=== PATIENT | female | born 1945 | race Caucasian/White ===

== ENCOUNTER 2017-02-18 13:30 | Emergency (ER) | payer BC, MEDICARE ==
[~2017-02-18 13:30] MED LIST: AMLO10TA2 PO; CARV3.122 PO; CITA20TA5 PO; HYDR12.58 PO; PRAV20TA2 PO
[2017-02-18 13:44] VITALS: BP 138/64
[2017-02-18] MEDS ORDERED: DIPHTH,PERTUSS(ACELL),TET TOX 0.5 ML DISP.SYRIN. VAX IM ONE (14:30)
[2017-02-18] MEDS ORDERED: HYDROcodone/APAP 5/325MG 1 TAB TABLET PO ONE (14:30)
--- NOTE | 2017-02-18 14:35 | PHYS DOC ---
Past Medical History Past Medical History: COPD, Hypertension, Other Additional Past Medical Histor: stress incontinence, leg swelling Past Surgical History: Other Alcohol Use: None Drug Use: None Adult General Chief Complaint Chief Complaint: MECHANICAL FALL HPI HPI 71-year-old female presenting to the emergency department today after having a mechanical fall on Sunday evening and hitting her in. She denies loss of consciousness or neck pain. She also injured her right wrist and feels some mild shoulder pain with pain in her right ribs with inspiration. The patient is a mild/moderate sharp pain that is nonradiating and without alleviating factors. She is not on warfarin or Coumadin. She does take a daily baby aspirin. She denies any other blood thinners. Review of systems is negative for abdominal pain nausea vomiting fevers chills or any other injuries to her extremities. All other review of systems is negative unless otherwise noted in history of present illness. ED course: 71-year-old female presenting to the emergency department today after sustaining a fall. X-rays of the right wrist and shoulder obtained along with CT the head and neck. The patient's right hand had a small laceration that was far outside window of repair. Otherwise the remainder the secondary survey shows no acute injuries. xrays unremarkable for acute pathology. pt placed in wrist splint and shoulder sling to f/u with pcp in 3 days. face to face d/c instructions given along with return precautions. Review of Systems Review of Systems SEE ABOVE. Current Medications Current Medications Current Medications Medications (Trade) Dose Ordered Sig/Henny Start Time Stop Time Status Last Admin Dose Admin Acetaminophen/ Hydrocodone Bitart (Lortab 5/325) 2 tab 1X ONCE 02/18/17 14:30 02/18/17 14:31 DC 02/18/17 14:09 2 TAB Diphtheria/ Tetanus/Acell Pertussis (Boostrix) 0.5 ml ONCE ONCE 02/18/17 14:30 02/18/17 14:31 DC Allergies Allergies Allergies Coded Allergies Type Severity Reaction Last Updated Verified No Known Drug Allergies 07/27/14 No Physical Exam Physical Exam SEE ABOVE Constitutional: Well developed, well nourished, no acute distress, non-toxic appearance. [] HENT: Normocephalic, ecchymosis of the chin with small abrasion. No abrasions lacerations or ecchymosis of the remainder of the head. Bilateral external ears normal, oropharynx moist, no oral exudates, nose normal. [] Eyes: PERRLA, EOMI, conjunctiva normal, no discharge. [] Neck: Normal range of motion, no tenderness, supple, no stridor. [] No step- offs lacerations or ecchymosis or abrasions of the c/t/and l spine. Nontender midline. Cardiovascular:Heart rate regular rhythm, no murmur [] Lungs & Thorax: Bilateral breath sounds clear to auscultation []. No crepitus to palpation of the chest wall. No ecchymosis of the chest wall. Tender to palpation at the 10th rib on the right. Abdomen: Soft nontender abdomen without rebound tenderness or guarding present. Negative McBurneys point. Negative Jules sign. No ecchymosis present. Skin: Warm, dry, no erythema, no rash. [] Back: No tenderness, no CVA tenderness. [] Extremities: Patient has swelling of the right wrist with pain of the wrist and hand. Nontender scaphoid. Neurovascularly intact otherwise of the right hand. Nontender with normal range of motion of the elbow on the right. Pain with passive range of motion of the right shoulder without any obvious deformities. Nontender clavicle. The left upper extremity has a small bruise on left hand that is nontender to palpation. Normal range of motion and nontender palpation of the remainder the left upper extremity. The lower extremities are nontender with normal range of motion. Neurovascularly intact. Neurologic: Alert and oriented X 3, normal motor function, normal sensory function, no focal deficits noted. [] Psychologic: Affect normal, judgement normal, mood normal. [] Current Patient Data Vital Signs Vital Signs Date Time Temp Pulse Resp B/P (MAP) Pulse Ox O2 Delivery O2 Flow Rate FiO2 02/18/17 14:09 16 02/18/17 13:44 98.4 72 138/64 (88) 97 Room Air 98.4 EKG EKG [] Radiology/Procedures Radiology/Procedures [] Course & Med Decision Making Course & Med Decision Making Pertinent Labs and Imaging studies reviewed. (See chart for details) [] Dragon Disclaimer Dragon Disclaimer This electronic medical record was generated, in whole or in part, using a voice recognition dictation system. Departure Departure Impression: Primary Impression: Fall Additional Impressions: Head injury Wrist pain Disposition: HOME, SELF-CARE Condition: STABLE Referrals: LAURY MORA MD (PCP) Patient Instructions: Fall Prevention and Home Safety, Head Injury, Adult, Wrist Pain Additional Instructions: Thank you for allowing us to participate in your care today. Followup with your primary care physician in 3 days if your symptoms do not improve. Call your Primary Doctor tomorrow and inform them of your visit today. If you do not have a primary care provider you can ask for a list of our primary care providers. Return to the emergency department you have any new or concerning findings. This should be evaluated by the primary care physician and any necessary consulting services for continued management within a few days after discharge. Return to emergency room if you have any new or concerning symptoms including but not limited to fever, chills, nausea, vomiting, intractable pain, any new rashes, chest pain, shortness of air, uncontrolled bleeding, difficulty breathing, and/or vision loss. You may have been prescribed medication that can change in your level of thinking and ability to operate machinery. These medications include hydrocodone and Ativan. Also, Benadryl has been known to do this as well. Be sure to check with your pharmacist and ask if the medications you've prescribed can affect your level of consciousness. I recommend not operating heavy machinery or driving while on medication such as these. Scripts Hydrocodone Bit/Acetaminophen (HYDROCODONE-APAP 5-325 ) 1 Each Tablet 1 TAB PO PRN Q6HRS Y for PAIN, #15 TAB 0 Refills Be careful as this medication may cause you to be drowsy or tired. Do not drive on this medication. Prov: ELISA MATTHEWS MD 02/18/17 Problem Qualifiers ELISA MATTHEWS MD Feb 18, 2017 14:35
--- NOTE | 2017-02-18 14:59 | RAD ---
CT HEAD AND CERVICAL SPINE WITHOUT CONTRAST History: Fall 2 days ago, head injury Comparison: None. Procedure: Axial images are obtained of the head from the skull base through the vertex without IV contrast. Noncontrast helical CT of the cervical spine was performed. Axial, sagittal, and coronal reconstructions were obtained. Head Findings: Mild periventricular hypoattenuation is nonspecific but most likely related to chronic small vessel ischemic disease. Meyers-white matter differentiation is preserved. The ventricles and sulci are normal for the patient's age.. No mass-effect, midline shift, hemorrhage or obvious acute infarction is identified. Basilar cisterns are patent. Bone windows demonstrate no acute calvarial abnormality. Ossific density in the right frontotemporal calvarium likely related to osteoma. The visualized paranasal sinuses appear clear. Mastoid air cells are well aerated. Cervical Spine Findings: Slight straightening of the normal cervical lordosis. Trace retrolisthesis of C5 on C6. The vertebral body heights are maintained. There is no evidence of acute fracture or acute malalignment. Moderate multilevel degenerative changes of the visualized spine with multilevel moderate to severe neural foraminal narrowing and at least mild spinal canal stenosis. No prevertebral soft tissue swelling is identified. Visualized soft tissues of the neck demonstrate no significant abnormalities. The visualized lung apices are clear. IMPRESSION: 1. No acute intracranial abnormality. 2. No acute fracture of the cervical spine. 3. Mild periventricular hypoattenuation is nonspecific but most likely related to chronic small vessel ischemic disease. 4. Moderate multilevel degenerative changes of the visualized spine with multilevel moderate to severe neural foraminal narrowing and at least mild spinal canal stenosis. PQRS Compliance Statement: One or more of the following individualized dose reduction techniques were utilized for this examination: 1. Automated exposure control 2. Adjustment of the mA and/or kV according to patient size 3. Use of iterative reconstruction technique
[2017-02-18] MEDS ORDERED: HYDR-2758 PO (15:36)
--- NOTE | 2017-02-18 15:50 | RAD ---
HAND RIGHT 3V Clinical Indication: Fall, hand pain Comparison: None. Findings: No acute fracture or malalignment. Multifocal arthrosis, worst at the first carpometacarpal joint, severe. Hitchhiker thumb deformity. Triangular fibrocartilage complex calcification. Bony mineralization is normal for the patient's age. No radiopaque foreign body. IMPRESSION: 1. No acute fracture or malalignment. 2. Multifocal arthrosis, worst at the first carpometacarpal joint, severe. Hitchhiker thumb deformity which can be seen with rheumatoid arthritis. Triangular fibrocartilage complex calcification which can be seen with CPPD. Constellation of findings is not specific for one entity.
--- NOTE | 2017-02-18 15:51 | RAD ---
SHOULDER 2+V RIGHT Clinical Indication: right wrist pain Comparison: None. Findings: No acute fracture or malalignment. Remote fracture of the distal third of the clavicle. Moderate glenohumeral joint arthrosis. Bony mineralization is normal for the patient's age. No significant soft tissue abnormality. No radiopaque foreign body. IMPRESSION: No acute fracture or malalignment.
--- NOTE | 2017-02-18 15:52 | RAD ---
WRIST 3V RIGHT Clinical Indication: Fall, right wrist pain Comparison: None. Findings: No acute fracture or malalignment. Multifocal arthrosis, worst at the first carpometacarpal joint, severe. Hitchhiker thumb deformity. Triangular fibrocartilage complex calcification. Bony mineralization is normal for the patient's age. No radiopaque foreign body. IMPRESSION: 1. No acute fracture or malalignment. 2. Multifocal arthrosis, worst at the first carpometacarpal joint, severe. Hitchhiker thumb deformity which can be seen with rheumatoid arthritis. Triangular fibrocartilage complex calcification which can be seen with CPPD. Constellation of findings is not specific for one entity.
--- NOTE | 2017-02-18 15:55 | RAD ---
RIBS RIGHT AND PA CHEST Clinical Indication: Fall, pain Comparison: Chest radiograph dated 04/04/2010 Findings: Normal lung volume. Remote granulomatous disease. Bibasilar subsegmental atelectasis. No focal consolidation. Normal pulmonary vasculature. No pleural effusion or pneumothorax. The cardiomediastinal silhouette is normal. Atherosclerotic thoracic aorta. No acute osseous abnormality. No displaced rib fracture. IMPRESSION: 1. Bibasilar subsegmental atelectasis. No focal consolidation. 2. No displaced rib fracture.
== END 2017-02-18 16:22 | disposition home or self-care (01) ==
LOC: ER 13:30
DX: S09.90XA Unspecified injury of head, initial encounter (principal); S69.91XA Unspecified injury of right wrist, hand and finger(s), initial encounter; M25.511 Pain in right shoulder; J44.9 Chronic obstructive pulmonary disease, unspecified; I10 Essential (primary) hypertension; M48.02 Spinal stenosis, cervical region
CPT/HCPCS: 29125; 70450; 71101; 72125; 73030; 73110; 73130; 99284-25

== ENCOUNTER → 2018-05-15 | Outpatient (CLI) | payer BC ==
[~2018-05-15] MED LIST changes: -AMLO10TA2 PO; +AMLO10TA6 PO; +CARV3.1210 PO; -CARV3.122 PO; -CITA20TA5 PO; +CITA20TA6 PO; +HYDR-2761 PO
--- NOTE | 2018-05-15 15:24 | CARD ---
MR#: [id number] Date of Study: 05/15/2018 Ordering Physician: JOSE DICKERSON, Referring Physician: JOSE DICKERSON, Tech: Lexy Keating RDCS APPROVED REPORT EXAM: Two-dimensional and M-mode echocardiogram with Doppler and color Doppler. Other Information Quality : Good INDICATION Peripheral Edema 2D DIMENSIONS RVDd2.3 (2.9-3.5cm)Left Atrium(2D)3.6 (1.6-4.0cm) IVSd1.1 (0.7-1.1cm)Aortic Root(2D)2.9 (2.0-3.7cm) LVDd5.3 (3.9-5.9cm)LVOT Diameter2.0 (1.8-2.4cm) PWd1.0 (0.7-1.1cm)LVDs3.7 (2.5-4.0cm) FS (%) 30.5 %SV77.6 ml LVEF(%)57.4 (>50%) Aortic Valve AoV Peak Stuart.129.6cm/sAoV VTI26.3cm AO Peak GR.6.7mmHgLVOT Peak Stuart.112.2cm/s LVOT VTI 22.45cmAO Mean GR.3mmHg NARCISA (VMAX)2.32vz0YIC (VTI)2.75cm2 Mitral Valve MV E Bldvfqle676.1cm/sMV DECEL NPVK669sk MV A Bnxzggxa99.6cm/sMV ZSU50wz E/A Ratio1.2MVA (PHT)3.61cm2 TDI E/Lateral E'13.2E/Medial E'18.3 Tricuspid Valve TR P. Weegeyck912zb/sRAP PQYRDWKZ9frHy TR Peak Gr.05eaZsZAQX94qyZn Pulmonary Vein S1 Sujmgkic55.7cm/sD2 Fnxeejfi54.4cm/s LEFT VENTRICLE The left ventricle is normal size. There is normal left ventricular wall thickness. The left ventricu lar systolic function is normal. The Ejection Fraction is 55-60%. There is normal LV segmental wall m otion. RIGHT VENTRICLE The right ventricle is normal size. The right ventricular systolic function is normal. ATRIA The left atrium size is normal. The right atrium size is normal. The interatrial septum is intact wit h no evidence for an atrial septal defect or patent foramen ovale as noted on 2-D or Doppler imaging. AORTIC VALVE The aortic valve is not well visualized but appears to be functioning normally by Doppler interrogati on. Doppler and Color Flow revealed no significant aortic regurgitation. There is no significant aort ic valvular stenosis. MITRAL VALVE The mitral valve is calcified but opens well. There is no evidence of mitral valve prolapse. There is no mitral valve stenosis. Doppler and Color-flow revealed mild mitral regurgitation. TRICUSPID VALVE The tricuspid valve is normal in structure and function. Doppler and Color Flow revealed trace tricus pid regurgitation. There is mild pulmonary hypertension. The PA pressure was estimated at 37 mmHg. Th ere is no tricuspid valve stenosis. PULMONIC VALVE The pulmonic valve is not well visualized but appears to be functioning normally by Doppler interroga tion. Doppler and Color Flow revealed no pulmonic valvular regurgitation. There is no pulmonic valvul ar stenosis. GREAT VESSELS The aortic root is normal in size. The ascending aorta is normal in size. The IVC is normal in size a nd collapses >50% with inspiration. PERICARDIAL EFFUSION There is no evidence of significant pericardial effusion. Critical Notification Critical Value: No <Conclusion> The left ventricular systolic function is normal. The Ejection Fraction is 55-60%. There is normal LV segmental wall motion. Mild mitral regurgitation. Trace tricuspid regurgitation. There is mild pulmonary hypertension. The PA pressure was estimated at 37 mmHg. There is no evidence of significant pericardial effusion. Signed by : Adi Maynard, Electronically Approved : 05/15/2018 15:22:54
== END | disposition home or self-care (01) ==
LOC: ECHO 13:49
PROVIDERS: ATTEND Internal Medicine Pulmonary Disease
DX: I34.0 Nonrheumatic mitral (valve) insufficiency (principal); I27.20 Pulmonary hypertension, unspecified
CPT/HCPCS: 93306

== ENCOUNTER → 2018-07-02 | Outpatient (CLI) | payer BC ==
[~2018-07-02] MED LIST changes: -AMLO10TA6 PO; +AMLO10TA8 PO
--- NOTE | 2018-07-03 18:35 | SLEEP ---
DATE OF STUDY: 07/02/2018 ATTENDING PHYSICIAN: Dr. Laury Reid. REFERRED BY: Dr. Jorge Sultana. The patient is 72 years old who weighs 203 pounds with a BMI of 32. The patient's Rochester score was 11. The patient underwent diagnostic sleep study at [facility]. Review of medications also includes citalopram and diazepam 10 mg as needed. During the night study, the patient spent 409 minutes in bed and slept for 200 minutes with a low sleep efficiency of 49%. Sleep latency was 17 minutes with absent REM sleep. Overall, sleep architecture showed a normal stage 1 sleep, increased stage 2 sleep, normal N3 sleep and absent REM sleep. During the night study, the patient had no obstructive central or mixed apneas and there were no hypopneas. The patient's apnea hypopnea index was 0 per hour. Supine index 0 per hour as well. REM sleep was not seen. EKG monitoring revealed normal sinus rhythm, average heart rate of 71 beats per minute. No arrhythmias observed. Nocturnal oximetry study revealed a mean oxygen saturation of 88% with the lowest of 84%. 93% of time oxygen saturation remained between 80% and 89%. There was a pattern of hypoventilation and majority of the time saturation remained around 86-89%. PLMS were seen at index of 13 per hour and none caused EEG arousals. Due to low AHI, the patient did not meet the split night criteria for CPAP initiation. IMPRESSION: 1. No clinically significant sleep disordered breathing. The patient's apnea-hypopnea index for the entire night was 0 per hour. 2. Mild periodic limb movements during sleep, which does not need to be treated. 3. Sustained mild nocturnal hypoxia suggesting hypoventilation. RECOMMENDATIONS: 1. The patient did not meet the criteria for CPAP initiation. 2. The patient has subjective hypersomnia. Consider the effect of medications. 3. If clinical suspicion for other disorders such as narcolepsy or idiopathic hypersomnia is high, then consider doing multiple sleep latency tests. The patient would benefit from 1 liter of oxygen at nighttime. ELISABETH VO MD DR: TRACE/shon JOB#: [id number] / [id number] LAURY Cooley MD, GEORGE MD
== END | disposition home or self-care (01) ==
LOC: SLPLAB 18:52
PROVIDERS: ATTEND Internal Medicine Pulmonary Disease
DX: G47.61 Periodic limb movement disorder (principal); G47.34 Idiopathic sleep related nonobstructive alveolar hypoventilation
CPT/HCPCS: 95810

== ENCOUNTER → 2019-05-26 | Outpatient (CLI) | payer BC ==
--- NOTE | 2019-05-26 15:22 | CARD ---
MR#: [id number] Date of Study: 05/26/2019 Ordering Physician: JOSE DICKERSON, Referring Physician: JOSE DICKERSON, Tech: Katty Esqueda [facility] APPROVED REPORT EXAM: Two-dimensional and M-mode echocardiogram with Doppler and color Doppler. Other Information Quality : GoodHR: 73bpm Rhythm : NSR INDICATION Shortness of breath, pulmonary HTN. Hx: COPD 2D DIMENSIONS RVDd3.5 (2.9-3.5cm)IVSd1.2 (0.7-1.1cm) LVDd4.5 (3.9-5.9cm)LVOT Diameter2.1 (1.8-2.4cm) PWd1.1 (0.7-1.1cm)LVDs3.1 (2.5-4.0cm) FS (%) 31.3 %SV54.6 ml LVEF(%)59.3 (>50%) Aortic Valve AoV Peak Stuart.129.8cm/Lg Peak GR.6.7mmHg Mitral Valve MV E Mngnclzw99.9cm/sMV DECEL VLET287ct MV A Ttiqqlqd31.4cm/sE/A Ratio1.2 MV A Isvadtkg613ol Pulmonary Valve PV Peak Dhprgmta66.3cm/s Tricuspid Valve TR P. Dzjjlypd071oz/sRAP YMCCFKDP91vrOd TR Peak Gr.55yyDuXQUJ13yqIs Pulmonary Vein S1 Uuavimmu64.4cm/sD2 Yhqoxidh60.4cm/s PVa dvtlalad98mfap LEFT VENTRICLE The left ventricle is normal size. Mild basal septal hypertrophy. The left ventricular systolic funct ion is normal. The Ejection Fraction is 55-60%. There is normal LV segmental wall motion. Transmitral Doppler flow pattern is Grade II-pseudonormal filling dynamics. RIGHT VENTRICLE The right ventricle is normal size. The right ventricular systolic function is normal. ATRIA The left atrium size is normal. The right atrium size is normal. The interatrial septum is intact wit h no evidence for an atrial septal defect or patent foramen ovale as noted on 2-D or Doppler imaging. AORTIC VALVE The aortic valve is normal in structure and function. No aortic regurgitation. No aortic valvular amanda nosis. MITRAL VALVE The mitral valve is normal in structure and function. Leaflets are mildly thickened. There is no mitr al valve stenosis. Trace mitral regurgitation. TRICUSPID VALVE The tricuspid valve is normal in structure and function. Trace tricuspid regurgitation. Estimated PAP is 40mmHg. There is no tricuspid valve stenosis. PULMONIC VALVE The pulmonic valve is not well visualized. GREAT VESSELS The aortic root is normal in size. The ascending aorta is normal in size. The IVC is dilated and bayron apses <50% with inspiration. PERICARDIAL EFFUSION There is no evidence of significant pericardial effusion. Critical Notification Critical Value: No <Conclusion> The left ventricular systolic function is normal. The Ejection Fraction is 55-60%. There is normal LV segmental wall motion. Transmitral Doppler flow pattern is Grade II-pseudonormal filling dynamics. Trace mitral regurgitation. Trace tricuspid regurgitation. Estimated PAP is 40mmHg. There is no evidence of significant pericardial effusion. Signed by : Adi Maynard, Electronically Approved : 05/26/2019 15:22:20
== END | disposition home or self-care (01) ==
LOC: ECHO 12:56
PROVIDERS: ATTEND Internal Medicine Pulmonary Disease
DX: I11.9 Hypertensive heart disease without heart failure (principal); I27.20 Pulmonary hypertension, unspecified; J44.9 Chronic obstructive pulmonary disease, unspecified
CPT/HCPCS: 93306

== ENCOUNTER 2020-01-12 08:20 | Outpatient (CLI) | payer BC ==
[2020-01-12] VITALS (10 sets, daily range): BP systolic 112–195; BP diastolic 54–79
[~2020-01-12] VITALS: Ht 170.2 cm; Wt 88.9 kg
[2020-01-12] MEDS ORDERED: DIAZ5TAB4 PO (08:51)
[2020-01-12] MEDS ORDERED: PRAM0.255 PO (08:51)
[2020-01-12] MEDS ORDERED: LOSA1TAB22 PO (08:51)
[2020-01-12] MEDS ORDERED: OMEG1CAP38 PO (08:52)
[2020-01-12] MEDS ORDERED: MULT-245 PO (08:52)
[2020-01-12 09:08] LABS: BASO # 0.1 x10^3/uL (0.0-0.2); BASO % 1 % (0-3); EOS # 0.1 x10^3/uL (0.0-0.7); EOS % 2 % (0-3); HEMATOCRIT 36.7 % (36.0-47.0); LYMPH # 0.9 x10^3/uL (1.0-4.8); LYMPH % 17 % (24-48); MEAN CORPUSCULAR HEMOGLOBIN 30 pg (25-35); MEAN CORPUSCULAR HGB CONC 33 g/dL (31-37); MEAN CORPUSCULAR VOLUME 92 fL (79-100); MONO # 0.3 x10^3/uL (0.0-1.1); MONO % 6 % (0-9); NEUT # 3.8 x10^3/uL (1.8-7.7); NEUT % 74 % (31-73); PLATELET COUNT 193 x10^3/uL (140-400); RED BLOOD COUNT 3.99 x10^6/uL (3.50-5.40); RED CELL DISTRIBUTION WIDTH 13.6 % (11.5-14.5); WHITE BLOOD COUNT 5.2 x10^3/uL (4.0-11.0)
[2020-01-12] MEDS ORDERED: LIDOCAINE WITH 8.4% SOD BICARB 3 ML DISP.SYRIN. ONE (09:44)
[2020-01-12] MEDS ORDERED: MIDAZOLAM HCL/PF 2 MG/2 ML VIAL. ONE (10:11)
[2020-01-12] MEDS ORDERED: fentaNYL PF VIAL 100 MCG/2 ML VIAL ONE (10:11)
[2020-01-12] MEDS ORDERED: MIDAZOLAM HCL/PF 2 MG/2 ML VIAL. IV ONE (10:30)
[2020-01-12] MEDS ORDERED: fentaNYL PF VIAL 100 MCG/2 ML VIAL IV ONE (10:30)
[2020-01-12] MEDS ORDERED: LIDOCAINE WITH 8.4% SOD BICARB 3 ML DISP.SYRIN. IJ ONE (10:30)
--- NOTE | 2020-01-12 10:54 | RAD ---
CT-guided biopsy, right lower lobe pulmonary nodule 01/12/2020 8:49 AM + Clinical Indication: 74-year-old female with right lower lobe pulmonary nodule concerning for primary lung . Discussion: The procedure was explained in its entirety to the patient or the patients designated bank representative by a member of the treatment team, including a discussion of the risks, benefits and commonly accepted alternatives to the procedure, as well as the expected consequences of no therapy whatsoever. Discussion of the risks included, but was not limited to, those that are most frequent and those that are rare but possibly severe or life-threatening, as well as the possibility of unforeseen complications. All elements of maximal sterile barrier technique including the use of a cap, mask, sterile gown, sterile gloves, large sterile sheet, appropriate hand hygiene, and 2% chlorhexidine for cutaneous antisepsis (or acceptable alternative antiseptic per current guidelines) were followed for this procedure. The patient was placed in the prone position. CT imaging was repeated demonstrating a somewhat rounded, somewhat lobular lung nodule in the right lower lobe measuring 2.2 cm in diameter. The overlying skin was prepped and draped using sterile barrier technique. 1% lidocaine was administered for local anesthesia. Under intermittent CT guidance a 17-gauge needle was advanced into the nodule. Core biopsy samples were obtained. The needle was removed. Manual pressure was held. Repeat imaging demonstrated no pneumothorax. Expected minimal perilesional hemorrhage is seen. No other immediate complication was identified. The procedures performed under conscious sedation including continuous cardiopulmonary monitoring via dedicated sedation nurse. Azli-sc-puqh sedation time: 15 minutes Impression: CT-guided biopsy, right lower lobe pulmonary nodule PQRS Compliance Statement: One or more of the following individualized dose reduction techniques were utilized for this examination: 1. Automated exposure control 2. Adjustment of the mA and/or kV according to patient size 3. Use of iterative reconstruction technique
--- NOTE | 2020-01-12 12:49 | NUR ---
Discharge Note: AVILA OTT Discharge instructions and discharge home medications reviewed with Patient and a copy given. All questions have been answered and understanding verbalized. The following instructions and handouts were given: moderate sedation and lung biopsy Discontinued lines and drains: Peripheral IV intact. Patient discharged to Home or Self Care withFamily Membervia Wheelchair
--- NOTE | 2020-01-12 15:32 | RAD ---
Single AP view of the chest. Comparison: 11/28/2019. Indication: Status post lung biopsy Findings: Right lower lobe pulmonary nodule appears stable.. Stable calcified granuloma of the pericardial fat. The heart is not enlarged. There is no pneumothorax or effusion. No air space or interstitial disease. Impression: 1. No pneumothorax is seen status post lung biopsy. Electronically signed by: Trav Bolaños MD (01/12/2020 3:28 PM) [id number]
--- NOTE | 2020-01-14 17:06 | PATHOLOGY ---
[facility] Accession Number: [id number] . 01 Material submitted: . lung - RIGHT LUNG BIOPSY. Modifiers: right . 01 Clinical history: . RIGHT LUNG NODULE . 02 Diagnosis: Lung tissue, right lung nodule needle biopsies: - SMALL CELL UNDIFFENTIATED CARCINOMA. SEE COMMENT. LBQ 01/14/2020 1659 Local . 02 Comment: Sections of the right lung nodule needle biopsy show extensive replacement of lung tissue by a malignant neoplasm. The malignant cells are present in solid nests within a reactive desmoplastic stroma. The malignant cells are small and have a high N/C ratio. The malignant cells possess rounded to ovoid nuclei having a finely dispersed chromatin. There is nuclear molding. Mitotic figures and apoptotic cells are readily demonstrated. Some of the tumor cell nests show central degeneration of tumor cells. A panel of immunoperoxidase stains is obtained on block A1 and yields the following results: . AE1/AE3: Tumor cells focally positive Cytokeratin 7: Tumor cells positive TTF-1: Tumor cells positive Synaptophysin: Tumor cells positive CD56: Tumor cells positive Ki-67: Tumor cells show high proliferation index (approximately 50-60%) . 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 The case is also examined by Dr. Solano, who concurs with the diagnosis. The results are reported to Dr. Sultana on 01/14/20 at 5:00 PM. . (JPM/db/pit; 01/13/2020) . Special stains performed: AE1/AE3, CK7, TTF-1, synaptophysin, CD56 and Ki-67 . . 02 Electronically signed: . Jacinto Keating MD, Pathologist NPI- [id number] . 01 Gross description: . The specimen is received in formalin, labeled "Michelle Chung, right lung biopsy". Received are two needle cores of pale reinoso soft tissue ranging in length from 0.8 to 1.0 cm in length by 0.1 cm in diameter. The specimen is submitted entirely in cassette A1 and A2. (CAA; 01/12/2020) QA/QA 01/12/2020 1706 Local . 02 Pathologist provided ICD-10: C34.91 . 02 CPT . 770528, [id number], [id number] Specimen Comment: A courtesy copy of this report has been sent to [phone], [phone] Specimen Comment: [id number], Specimen Comment: Report sent to ,DR SULTANA / DR MORA Performed at: 01 [facility] [address], [place] [id number] MD John Dumont MD Phone: [phone] Performed at: 02 [facility] [address] [place], [place] [id number] MD Jacinto Keating MD Phone: [phone]
== END 2020-01-12 12:51 | disposition home or self-care (01) ==
LOC: INTRAD 08:20
PROVIDERS: ATTEND Internal Medicine Pulmonary Disease
DX: C34.91 Malignant neoplasm of unspecified part of right bronchus or lung (principal); I10 Essential (primary) hypertension; Z88.8 Allergy status to other drugs, medicaments and biological substances; Z79.899 Other long term (current) drug therapy; Z87.891 Personal history of nicotine dependence; Z79.01 Long term (current) use of anticoagulants
CPT/HCPCS: 32405; 36415; 71045; 77012; 85025; 85610; 85730; 99152; J2250; J3010; J3490; 88305; 88341; 88342